=== PATIENT | male | born 1965 | race Two or more races ===

== ENCOUNTER → 2025-01-02 | Outpatient (CLI) | payer MEDICAID, SELFPAY ==
--- NOTE | 2025-01-02 10:30 | XR_ITS ---
Examination: MRI lumbar spine without contrast Date and time of exam: January 02, 2025 1158 hours INDICATIONS: Low back pain radiating down the left leg beginning August 2024 Technique: Multiple MRI axial and sagittal sections lumbar spine. Sagittal T2-weighted images, TR 3500, TE 118 T1 weighted transverse sections, TR 688 T8.5, T2-weighted sagittal sections T1 weighted sagittal sections TR 621, TE 30 T2 axial sections, TR 4, 190, TE 84. Findings: Adequate alignment lumbar vertebral bodies Chronic compression, moderate T12 No acute lumbar fracture Diffuse lumbar disc desiccation Advanced disc narrowing L5-S1 L5-S1 5 mm central lumbar disc bulge contiguous with the right and left S1 nerve roots L4-L5 8mm central lumbar disc bulge L3-L4 2 mm central lumbar disc bulge L2-L3 no disc protrusion L1-L2 no disc protrusion IMPRESSION: Advanced degenerative disc disease L5-S1 L5-S1 5 mm central lumbar disc bulge contiguous with the right and left S1 nerve roots L4-L5 8mm central lumbar disc bulge
== END | disposition home or self-care (01) ==
PROVIDERS: Referring Provider Family Medicine; Visit Provider Family Medicine
DX: M51.370 Other intervertebral disc degeneration, lumbosacral region with discogenic back pain only (principal); M51.360 Other intervertebral disc degeneration, lumbar region with discogenic back pain only
CPT/HCPCS: 72148

== ENCOUNTER 2025-02-02 14:20 | Emergency (ER) | payer MEDICAID, SELFPAY ==
[2025-02-02 14:37] VITALS: BP 119/82; PULSE 90; RESP 18; TEMP 36.7; O2SAT 95
--- NOTE | 2025-02-02 15:05 | XR_ITS ---
Examination: CT brain head without contrast. 2-D sagittal coronal reconstructions Date and time of exam:February 02, 2025 1514 hours INDICATIONS: Ground-level fall today with frontal head pain facial abrasions CTDI: vol (mGy):46.7 DLP: (mGycm):935 Technique: Multiple CT axial sections of the brain have been obtained, 5 mm slice thickness. Contrast has not been administered. 2-D sagittal, coronal reconstructions have been obtained Low dose protocols were performed. One or more of the following dose reduction techniques were used; automated exposure control, adjustment of the mA and/or KV according to patient size, use of iterative reconstruction technique. Findings: No significant ventricular enlargement. Intra-axial or extra-axial hemorrhage density is not seen. No mass effect or midline shift Basal cisterns are not remarkable. Fourth ventricle is midline. Cranial vault intact. Chronic pansinusitis Impression: Negative for acute hemorrhage, mass effect or midline shift
--- NOTE | 2025-02-02 15:05 | EKG_ITS ---
[facility] Test Date: 2025-02-02 Pat Name: CLAUDINE MANCIA Department: Room: - Gender: Male Welfare Officer: : 1965 Requested By: Ting Vann Order Number: [id number] Reading MD: Ting Vann Measurements Intervals [place] Rate: 90 P: 61 NM: 140 QRS: 69 QRSD: 94 T: 68 QT: 348 QTc: 426 Interpretive Statements SINUS RHYTHM No previous ECG available for comparison /store/S0/[id number]/ecg/[id number].pdf
--- NOTE | 2025-02-02 15:05 | XR_ITS ---
Examination: CT maxillofacial, without intravenous contrast. 2-D sagittal reconstructions. 3-D reconstructions. Date and time of exam:February 02, 2025 1514 hours INDICATIONS: Patient fell today with injury to the face, facial bruising and swelling CTDI: vol (mGy):22.2 DLP: (mGycm):436 Technique: Multiple axial images of maxillofacial region, 3.0 mm slice thickness. 2-D sagittal and coronal reconstructions. 3-D reconstructions. Low dose protocols were performed. One or more of the following dose reduction techniques were used; automated exposure control, adjustment of the mA and/or KV according to patient size, use of iterative reconstruction technique. Findings: Chronic pansinusitis severe involving the ethmoid air cells Soft tissue frontal scalp swelling Frontal bone intact Orbital rims intact No depression zygomatic arches Pterygoid plates maxilla and the mandible intact IMPRESSION: No acute facial fracture.
--- NOTE | 2025-02-02 15:05 | XR_ITS ---
Examination: CT cervical spine without contrast 2-D sagittal reconstructions 2-D coronal reconstructions 3-D reconstructions. Exam date and time:February 02, 2025 1514 hours INDICATIONS: Ground-level fall today with injury to the neck, neck pain CTDI:vol (mGy) 15 DLP: (mGycm) 349 Technique: Multiple 2 mm axial sections of the cervical spine have been obtained. The coronal and sagittal reconstructions have been obtained. 3-D reconstructions have been obtained. Low dose protocols were performed. One or more of the following dose reduction techniques were used; automated exposure control, adjustment of the mA and/or KV according to patient size, use of iterative reconstruction technique. Findings: Axial sections demonstrate intact base of the skull. C1 exhibit satisfactory relationship to the odontoid. No acute cervical vertebral body fracture seen. Alignment posterior spinous processes satisfactory. Impression: No acute cervical fracture.
--- NOTE | 2025-02-02 15:06 | XR_ITS ---
Examination: PA chest single view TECHNIQUE: Upright PA chest single view Date and time: February 02, 2025 1529 hours INDICATIONS: Syncopal episode today. FINDINGS: Normal heart size No aspiration pneumonia No pneumothorax. Clavicles ribs appear intact IMPRESSION: Negative for aspiration pneumonia
--- NOTE | 2025-02-02 15:07 | EDNOTE_ITS ---
ED Syncope RME/HPI General Chief Complaint: Syncope / Near Syncope Stated Complaint: Syncope X 2 fell and hit his head, loss of LOC Time Seen by Provider: 02/02/25 14:55 Arrival date/time: 02/02/25 14:20 RME / HPI RME / HPI narrative: 59-year-old male patient came in for evaluation regarding syncope. Patient had 2 episode of syncope today and fell down or on his face resulting to abrasions to the forehead nose and right cheek. Also complained of posterior neck pain severity mild also complained of headache denies any chest pain denies any other complaints incident happened this morning patient is ambulatory Related Data Allergies Allergy/AdvReac Type Severity Reaction Status Date / Time No Known Drug Allergies Allergy Verified 02/02/25 14:28 Review of Systems Review of Systems Narrative Review of Systems: Review of system reviewed and within normal limits except mentioned in HPI ED Exam Narrative Physical exam: VITAL SIGNS: Reviewed. GENERAL APPEARANCE: Alert and interactive, follows commands, no acute distress, HEAD AND FACE: Abrasion noted on the forehead nasal bridge and right check with tenderness ENT: PERRL, pink conjunctivitis, eyelid no trauma, Mucous membrane moist. NECK: Supple, posterior neck tenderness, no nuchal rigidity. CHEST: No tenderness, no crepitus, no paradoxical movement, no retractions. LUNGS: Clear, well ventilated, symmetric, no rales, no wheezing, no ronchi, no stridor, good breath sounds bilaterally. HEART: Regular rate, regular rhythm, no murmur, no gallops. ABDOMEN: Soft, positive bowel sounds, nondistended, no guarding, nontender, no rebound, no masses, RECTAL: Deferred. GENITAL: Deferred. NEUROLOGICAL: Gross motor function intact sensory function intact, Appropriate for age. MUSCULOSKELETAL: low back nontender, full range of motion. EXTREMITIES: Nontender, full range of motion. SKIN: Color pink, dry, no rash, no lacerations, no abrasions, no contusions. LYMPHATICS: Deferred. Course Quality Measures none Orders Category Date Time Status EKG (ED ONLY) *Do not use* NOW Care 02/02/25 15:[address] cervical spine wo con Stat Exams 02/02/25 15:[address] facial bones wo con Stat Exams 02/02/25 15:[address] head/brain wo con Stat Exams 02/02/25 15:05 Completed EKG (ED Only) Stat Exams 02/02/25 15:05 Draft XR chest 1V Stat Exams 02/02/25 15:06 Completed B-Type Natriuretic Peptide Stat Lab 02/02/25 15:31 Completed CBC Stat Lab 02/02/25 15:31 Completed Comprehensive Metabolic Panel Stat Lab 02/02/25 15:31 Completed Partial Thromboplastin Time Stat Lab 02/02/25 15:31 Completed Troponin I Stat Lab 02/02/25 15:31 Completed Urinalysis, C/S if Indicated Stat Lab 02/02/25 15:47 Completed Vital Signs Vital signs: Vital Signs Temperature 98.0 F 02/02/25 14:37 Pulse Rate 90 02/02/25 14:37 Respiratory Rate 18 02/02/25 14:37 Blood Pressure 119/82 02/02/25 14:37 Pulse Oximetry (%) 95 02/02/25 14:37 Oxygen Delivery Method Room Air 02/02/25 14:37 Syncope MDM Narrative MDM Narrative:: 59-year-old male patient came in for evaluation regarding syncope. Patient had 2 episode of syncope today and fell down or on his face resulting to abrasions to the forehead nose and right cheek. Also complained of posterior neck pain severity mild also complained of headache denies any chest pain denies any other complaints incident happened this morning patient is ambulatory CT scan of the head came back unremarkable CT scan of the face came back unremarkable CT scan of the neck came back unremarkable. Patient's WBC is slightly elevated 14.7, blood sugar was also noted to be 346 with no sign of diabetic acidosis. Urinalysis no UTI EKG showed normal sinus rhythm, ventricular rate of [address] segment elevation or depression noted. No recurrence of syncope noted in the ED. Patient is ambulatory. Patient data External records reviewed:: None Clinical information provided by:: patient Social determinants that could affect healthcare access:: none Patient has the following chronic illnesses:: Diabetes mellitus How is presenting disease/condition affected by chronic disease/condition?: exacerbated by Evaluation data The following diagnostics were reviewed and interpreted by me:: lab results, radiology exam(s) and EKG tracing(s) Lab and/or radiology exams considered but not ordered:: None Interpretation Summary: See results MDM Medications / Prescriptions Medications or Prescriptions considered but not ordered:: None Medication administrations:: None Consultations Consultation(s) initiated? (list below): No Diagnosis Syncope Differential Diagnosis: syncope due to orthostatic hypotension, vasovagal syncope and dehydration Most likely diagnosis given after review of the tests above:: Vasovagal syncope Admission Indicated Admission indicated?: not indicated Admission Request Was there a request for admission?: No Disposition Plan Disposition Plan: Discharge Discharge Attestation Discharge Attestation: The patient and all family members were given an opportunity to ask questions and understood the discharge instructions. Discharge instructions specifically effects, indications for sooner follow up or return to the emergency department, and the expected course of current diagnosis. Patient condition: Stable Discharge Plan Plan Patient Disposition: HOME (Self Care) Discharge Disposition comment: Stable Problem List Clinical Impression: Vasovagal syncope, Contusion of face Patient/Caregiver Discharge Instructions Discharge Activity: activity as tolerated Education Materials: Bruises (Contusions), Understanding Vasovagal Syncope Additional Instructions: Thank you for the opportunity for serving you today. You are stable for discharged . You are advised to: Follow-up with your PCP in 1 to 2 days Return to ED for worsening of symptoms Increase oral fluids Print Language: Macedonian Stand Alone Forms: Mariana Award Info., Patient Portal Info Letter
[2025-02-02 15:41] LABS: Basophils % (Auto) 0 % (0-2.5); Eosinophils # (Auto) 0.2 Thou/mm3 (0.0-0.5); Eosinophils % (Auto) 1 % (0-10); Hematocrit 45.9 % (41.0-53.0); Hemoglobin 16.5 g/dL (13.5-16.0); Immature Granulocytes % (Auto) 1 % (0-0); Immature Granulocytes Auto 0.08 Thou/mm3 (0.00-0.00); Lymphocytes # (Auto) 1.8 Thou/mm3 (1.0-4.8); Lymphocytes % (Auto) 12 % (10-50); Mean Corpuscular HGB Conc 35.9 g/dl (31.0-37.0); Mean Corpuscular Hemoglobin 28.3 pg (25.0-35.0); Mean Corpuscular Volume 79 fL (80-100); Monocytes # (Auto) 0.9 Thou/mm3 (0.0-0.8); Monocytes % (Auto) 6 % (0-12); Neutrophils # (Auto) 11.8 Thou/mm3 (1.8-7.7); Neutrophils % (Auto) 80 % (37-80); Nucleated Red Blood Cell % 0 /100 WBC (0); Platelet Count 212 Thou/mm3 (140-440); RDW Standard Deviation 35.8 fL (35.1-43.9); Red Blood Count 5.83 Miln/mm3 (4.50-5.90); White Blood Count 14.7 Thou/mm3 (3.8-10.6)
[2025-02-02 15:59] LABS: B-Type Natriuretic Peptide < 20 pg/mL (0-100)
[2025-02-02 16:01] LABS: Collection Type, Urine Clean Catch; RBC,Urine 0 /hpf (0-3); Squamous Epithelial Cell,Urine 0 /hpf (0-5); WBC,Urine 0 /hpf (0-5)
[2025-02-02 16:04] LABS: Alanine Aminotransferase 18 U/L (10-49); Albumin, Serum 4.6 gm/dL (3.5-5.0); Alkaline Phosphatase 151 U/L (46-116); Anion Gap 11 (7-16); Aspartate Amino Transferase 15 U/L (0-34); BUN/Creatinine Ratio 15 Ratio (12-20); Bilirubin,Total 0.6 mg/dL (0.3-1.2); Blood Urea Nitrogen 12 mg/dL (9-23); Calcium 9.5 mg/dL (8.3-10.6); Calcium (Corrected) 9.5 mg/dL (8.5-10.1); Carbon Dioxide 23.6 mMol/L (20.0-31.0); Chloride 100 mMol/L (98-107); Creatinine (Component) 0.8 mg/dL (0.6-1.3); Globulin 2.3 gm/dL (2.3-3.5); Glucose 346 mg/dL (74-106); Osmolality,Calculated 283 (275-295); Potassium 4.3 mMol/L (3.4-5.1); Sodium 135 mMol/L (136-145); Total Protein 6.9 gm/dL (5.7-8.2); Troponin I < 0.020 ng/mL (0.0-0.045); eGFR > 60 See Note
[2025-02-02 16:08] LABS: Bilirubin,Urine Negative (Negative); Blood,Urine Negative (Negative); Clarity,Urine Clear (Clear/Hazy); Color,Urine Lt-Yellow (Lt Yel-Yel); Culture Indicated,Urine Not Indicated; Glucose, Urine 4+ (Negative); Ketones,Urine Negative (Negative); Leukocyte Esterase,Urine Negative (Negative); Nitrite,Urine Negative (Negative); PH,Urine 5.5 (5.0-7.0); Protein,Urine Negative (Neg - Trace); Specific Gravity,Urine 1.046 (1.001-1.035); Urobilinogen,Urine Negative mg/dL (0.0-1.0)
== END 2025-02-02 18:33 | disposition home or self-care (01) ==
LOC: SERX 18:22
PROVIDERS: Nurse Practitioner Family; Emergency Provider Emergency Medicine
DX: S00.83XA Contusion of other part of head, initial encounter (principal); R55 Syncope and collapse; S00.81XA Abrasion of other part of head, initial encounter; S19.9XXA Unspecified injury of neck, initial encounter; S09.93XA Unspecified injury of face, initial encounter; W18.30XA Fall on same level, unspecified, initial encounter
CPT/HCPCS: 36415; 70450; 70486; 71045; 72125; 80053; 81001; 83880; 84484; 85025; 85730; 93005; 99284